=== PATIENT | male | born 1940 | race Caucasian/White ===

== ENCOUNTER → 2018-06-21 | Outpatient (CLI) | payer OTHER ==
[~2018-06-21] VITALS: Ht 177.8 cm; Wt 99.8 kg
[~2018-06-21] MED LIST: ASPIR 8181 MG PO; CRESTOR10 MG PO; METFORMIN HCL500 MG PO
--- NOTE | ~2018-06-21 | P ---
[facility] [place] [address] [place] [address] PROCEDURE REPORT Name: JOSE GERMAIN Room #: REG Fahad Grover#: [id number] Admission: 06/21/18 Attend Phys: Jerry Mckeon Discharge: Date of : 42 Report #: [id number] THIS REPORT FOR: //name// CC: Jerry Shoemaker MD DATE OF SERVICE: 06/21/2018 PROCEDURE PERFORMED: Colonoscopy with biopsies. HISTORY OF PRESENT ILLNESS: The patient is a 77-year-old male with a history of colon polyps in 2010. He is here for routine followup. Denies any symptoms other than some loose stools at times. Denies any blood in his stools. No family history of colon cancer. DESCRIPTION OF PROCEDURE: The risks and benefits of the procedure were explained to the patient, those risks including but not limited to bleeding, perforation and the risk of sedation. He understood these risks and gave informed consent. Sedation was given using propofol per anesthesia. Next, a digital rectal exam was initially performed, which was normal. Next, using a standard Olympus colonoscope, the scope was placed in the patient's anus and advanced under direct vision to the cecum. The overall prep was excellent. The cecum and ileocecal valve were normal in appearance. In the proximal ascending colon, a 4-mm sessile polyp was noted. This was removed with cold forceps, otherwise normal. The transverse and descending colon were normal. A few scattered diverticula were noted in the sigmoid colon, no evidence of inflammation, otherwise normal. In the rectum, a 3 mm sessile polyp was also noted and removed with cold forceps. Random biopsies were also obtained today to rule out the possibility of microscopic colitis. On retroflexion in the rectum, small nonbleeding internal hemorrhoids were noted. The scope was then withdrawn and the procedure terminated. The patient tolerated the procedure well. IMPRESSION: 1. Two small colonic polyps. 2. Sigmoid diverticulosis. 3. Internal hemorrhoids. 4. Otherwise, normal colonoscopy. RECOMMENDATIONS: 1. Await biopsy results. 2. If polyps are hyperplastic, repeat colonoscopy in 10 years; if adenomatous polyps, repeat in [address] [address] PROCEDURE REPORT Name: JOSE GERMAIN Room #: REG KAE Grover#: [id number] Admission: 06/21/18 Attend Phys: Jerry Mckeon Discharge: Date of : 42 Report #: [id number] Thank you for allowing me to participate in his care. <ELECTRONICALLY SIGNED> By: Jerry Wheeler MD 06/24/18 [id number] Jerry Wheeler MD /nt
--- NOTE | ~2018-06-21 | PATH ---
[facility] [place] [address] PATHOLOGY RPT PROCEDURE Name: JOSE GERMAIN Room #: REG KAE Mamadou.#: [id number] Admission: 06/21/18 Date of : 42 Discharge: Report #: [id number] Path Case #: [id number] [facility] Accession Number: [id number] . 01 Material submitted: . PART A: RANDOM COLON BIOPSIES R/O MICROSCOPIC COLITIS PART B: POLYP AT ASCENDING COLON PART C: POLYP AT RECTUM . 01 Clinical history: . Pre-OP DX: Hx polyps Post-OP DX: Colon polyp, rectal polyp . 02 Diagnosis: A. Large intestinal mucosa, random colon R/O microscopic colitis, endoscopic biopsy: - Mild active colitis. Please see comment. - Negative for microscopic colitis. - Negative for dysplasia or malignancy. . B. Polyp, at ascending colon, endoscopic biopsy: - Tubular adenoma. - Negative for high-grade dysplasia. . C. Polyp, at rectum, endoscopic biopsy: - Hyperplastic polyp. - Negative for high-grade dysplasia. (IUV:thomas; 06/24/2018) QMS/06/24/2018 . 02 Comment: Sections of the colonic mucosa designated "random colon" show focal cryptitis, and a moderately cellular lamina propria composed predominantly of lymphocytes and plasma cells and occasional eosinophils. Surface ulceration is not identified. There are no crypt abscesses, granulomas or viral inclusions. The process affects all the fragments with a similar intensity. Given the description, the differential diagnosis includes mild active colitis likely due to infectious etiology, medication-induced/ drug-induced colitis, early inflammatory bowel disease, as well as acute diverticulitis. Please correlate with clinical as well as endoscopic findings. (IUV:thomas; 06/24/2018) . 02 Electronically signed: . Carlee Barksdale MD, Pathologist NPI- [id number] . [address] [place] [address] PATHOLOGY RPT PROCEDURE Name: JOSEHeshamJOSE Room #: REG CLI Reilly#: [id number] Admission: 06/21/18 Date of : 42 Discharge: Report #: [id number] Path Case #: [id number] Gross description: . A. Received in formalin labeled "Josehesham Jose, random colon BX, rule out microscopic colitis," and additionally labeled on the requisition as "biopsies," are 4 segments of pitt soft tissue measuring 1.1 x 0.5 x 0.1 cm in aggregate dimensions and ranging from 0.3 to 0.8 cm in maximum dimension. The specimen is submitted entirely in cassette A1. . B. Received in formalin labeled "Jose Germain, ascending colon polyp," are 3 segments of pitt soft tissue measuring 0.9 x 0.6 x 0.3 cm in aggregate dimensions and ranging from 0.2 to 0.4 cm in maximum dimension. The specimen is submitted entirely in cassette B1. . C. Received in formalin labeled "Jose Germain, rectal polyp," is a single segment of pitt soft tissue measuring 0.4 cm in maximum dimension. The specimen is entirely submitted in cassette C1. (TSD; 06/21/2018) TOB/TOB . 02 Pathologist provided ICD-10: K52.9, D12.2, K62.1 . 02 CPT . 327237, 587518, 247585 Specimen Comment: A courtesy copy of this report has been sent to Specimen Comment: [phone], . Specimen Comment: Report sent to / DR MCLEAN Performed at: [address] [facility], [place], [place] [id number] MD Apolinar Enamorado MD Phone: [phone] Performed at: [address] [facility] [id number] MD Carlee Barksdale MD Phone: [phone]
== END | disposition home or self-care (01) ==
LOC: GI 06:56
DX: D12.2 Benign neoplasm of ascending colon (principal); K52.9 Noninfective gastroenteritis and colitis, unspecified; K62.1 Rectal polyp; K57.30 Diverticulosis of large intestine without perforation or abscess without bleeding; K64.8 Other hemorrhoids; E11.9 Type 2 diabetes mellitus without complications; E78.5 Hyperlipidemia, unspecified; Z86.010 Personal history of colon polyps; Z87.891 Personal history of nicotine dependence; Z96.651 Presence of right artificial knee joint; Z98.890 Other specified postprocedural states; Z79.82 Long term (current) use of aspirin; Z79.899 Other long term (current) drug therapy
CPT/HCPCS: 62110; 62900